=== PATIENT | female | born 1935 | race Caucasian/White ===

== ENCOUNTER 2020-07-28 09:12 | Inpatient (IN) | payer MEDICARE, OTHER ==
[~2020-07-28] VITALS: Ht 160 cm; Wt 74.2 kg
[2020-07-28] VITALS (18 sets, daily range): BP systolic 93–142; BP diastolic 56–94
[~2020-07-28 09:12] MED LIST: ATORVASTATIN CA40 MG PO; DIOVAN160 MG PO; IBUPROFEN200 MG PO; NEXIUM40 MG PO; PREMARIN0.625 MG PO; TYLENOL PM EX-1 EACH PO
[2020-07-28] MEDS ORDERED: NITROGLYCERIN 2% OINT 1 GM PKT TOP ONE (09:30)
[2020-07-28 09:56] LABS: ALANINE AMINOTRANSFERASE 14 IU/L (0-55); ALBUMIN 3.5 g/dL (3.5-5.0); ALKALINE PHOSPHATASE 66 IU/L (40-150); ANION GAP 15.1 mmol/L (8-16); BLOOD UREA NITROGEN 12 mg/dL (7-26); BUN/CREATININE RATIO 14 (6-25); CALCIUM 8.6 mg/dL (8.4-10.2); CARBON DIOXIDE 23 mmol/L (22-29); CHLORIDE 103 mmol/L (98-107); CREATINE KINASE 133 IU/L (29-168); CREATININE, SERUM 0.84 mg/dL (0.57-1.11); EST GLOMERULAR FILTRATION RATE > 60 ML/MIN (60-); GLUCOSE 97 mg/dL (74-118); MAGNESIUM 1.7 MG/DL (1.3-2.1); POTASSIUM 4.1 mmol/L (3.5-5.1); SODIUM 137 mmol/L (136-145)
[2020-07-28 09:58] LABS: BASOPHILS # (AUTO) 0.1 (0.0-0.1); EOSINOPHILS # (AUTO) 0.2 (0.0-0.4); EOSINOPHILS % 1.9 % (0.0-6.0); HEMATOCRIT 41.6 % (34.2-44.1); HEMOGLOBIN 13.5 g/dL (12.0-16.0); LYMPHOCYTES # (AUTO) 2.6 (1.0-3.2); MEAN CORPUSCULAR HEMOGLOBIN 30.8 pg (28-32); MEAN CORPUSCULAR HGB CONC 32.5 g/dL (31-35); MEAN CORPUSCULAR VOLUME 94.8 fL (81-99); MONOCYTES % 8.5 % (4.4-11.3); NEUTROPHILS # (AUTO) 7.4 (2.1-6.9); NEUTROPHILS % 65.2 % (38.7-80.0); PLATELET COUNT 276 x10e3/uL (140-360); RED BLOOD COUNT 4.39 x10e6/uL (3.6-5.1); RED CELL DISTRIBUTION WIDTH 12.9 % (11.7-14.4)
[2020-07-28] MEDS ORDERED: ASPIRIN 81 MG CHEW TAB PO ONE (10:00)
[2020-07-28] MEDS ORDERED: PANTOPRAZOLE 40 MG 10ML VIAL IV ONE (10:00)
[2020-07-28 10:26] LABS: INR 0.92; PARTIAL THROMBOPLASTIN TIME 27.5 seconds (23.8-35.5); PROTHROMBIN TIME 12.8 seconds (11.9-14.5)
[2020-07-28] MEDS ORDERED: ENOXAPARIN SODIUM INJ 100 MG/ML SYR SC NR (11:00)
[2020-07-28] MEDS ORDERED: MORPHINE SULFATE 2 MG/ML SYR 1ML IV PRN (11:15)
[2020-07-28] MEDS ORDERED: ONDANSETRON HCL INJ 2MG/ML 2ML 2 MG/ML VIAL IV PRN ×2 (11:15→14:15)
[2020-07-28] MEDS ORDERED: NITROGLYCERIN 2% OINT 1 GM PKT TOP SCH (12:00)
[2020-07-28] MEDS ORDERED: BIVALRIUDIN 250 MG/VIAL VIAL IV ONE (12:39)
[2020-07-28] MEDS ORDERED: SODIUM CHLORIDE 0.9% 50ML 50 ML ONE (12:39)
[2020-07-28] MEDS ORDERED: LIDOCAINE HCL 2% LOCAL 20 ML VIAL ONE (12:39)
[2020-07-28] MEDS ORDERED: FENTANYL CITRATE/PF 100MCG/2 ML INJ ONE (12:39)
[2020-07-28] MEDS ORDERED: MIDAZOLAM HCL 2 MG/2 ML VIAL ONE (12:39)
[2020-07-28] MEDS ORDERED: SODIUM CHLORIDE 0.9% 1000ML 1,000 ML ONE (12:40)
[2020-07-28] MEDS ORDERED: HEPARIN SOD/SOD CHLORIDE 2,000 ML ONE (12:40)
[2020-07-28] MEDS ORDERED: NITROGLYCERIN/D5W 200 MCG/ML 250 ML ONE (12:40)
[2020-07-28] MEDS ORDERED: IOPAMIDOL 370 MG/ML 200 ML INFUS..BTL INJ ONE (12:40)
[2020-07-28] MEDS ORDERED: ASPIRIN 325 MG TAB ONE (13:23)
[2020-07-28] MEDS ORDERED: CLOPIDOGREL BISULFATE 75 MG TAB ONE (13:23)
[2020-07-28] MEDS ORDERED: ADENOSINE 6MG/2ML 1 ML ONE (13:28)
[2020-07-28] MEDS ORDERED: SODIUM CHLORIDE 0.9% 250ML 250 ML ONE (13:28)
[2020-07-28] MEDS ORDERED: LOSARTAN POTASS25 MG (15:25)
[2020-07-28] MEDS ORDERED: METOPROLOL SUCC25 MG (15:26)
[2020-07-28] MEDS ORDERED: MONTELUKAST SOD10 MG PO (15:26)
[2020-07-28] MEDS ORDERED: ORPHENADRINE C100 MG PO (15:27)
[2020-07-28] MEDS: SODIUM CHLORIDE 0.9% 1000ML 1,000 ML IV SCH (16:13)
[2020-07-28] MEDS: METOPROLOL TARTRATE 25 MG TAB PO SCH (16:45)
[2020-07-28 17:12] LABS: CREATINE KINASE MB 18.9 ng/mL (0-5.0)
[2020-07-28] MEDS ORDERED: ATORVASTATIN 20 MG TAB PO SCH (21:00)
[2020-07-28] MEDS ORDERED: PRILOSEC OTC20 MG PO (21:10)
[2020-07-28] MEDS ORDERED: DIPHENHYDRAMINE HCL 25 MG CAP PO PRN (21:15)
[2020-07-29] VITALS (12 sets, daily range): BP systolic 94–142; BP diastolic 54–89
[2020-07-29] MEDS: SODIUM CHLORIDE 0.9% 1000ML 1,000 ML IV SCH (01:00)
[2020-07-29 01:20] LABS: CREATINE KINASE MB 18.8 ng/mL (0-5.0)
[2020-07-29 06:13] LABS: BASOPHILS % 0.5 % (0.0-1.0); EOSINOPHILS # (AUTO) 0.1 (0.0-0.4); EOSINOPHILS % 1.6 % (0.0-6.0); HEMATOCRIT 36.1 % (34.2-44.1); HEMOGLOBIN 11.8 g/dL (12.0-16.0); LYMPHOCYTES # (AUTO) 2.4 (1.0-3.2); LYMPHOCYTES % 28.8 % (18.0-39.1); MEAN CORPUSCULAR HEMOGLOBIN 30.9 pg (28-32); MEAN CORPUSCULAR HGB CONC 32.7 g/dL (31-35); MEAN CORPUSCULAR VOLUME 94.5 fL (81-99); MONOCYTES # (AUTO) 0.9 (0.2-0.8); NEUTROPHILS # (AUTO) 4.7 (2.1-6.9); NEUTROPHILS % 57.7 % (38.7-80.0); PLATELET COUNT 232 x10e3/uL (140-360); RED BLOOD COUNT 3.82 x10e6/uL (3.6-5.1); RED CELL DISTRIBUTION WIDTH 13.2 % (11.7-14.4)
[2020-07-29 06:41] LABS: ALANINE AMINOTRANSFERASE 13 IU/L (0-55); ALBUMIN 2.9 g/dL (3.5-5.0); ALBUMIN/GLOBULIN RATIO 0.9 (0.8-2.0); ALKALINE PHOSPHATASE 61 IU/L (40-150); ANION GAP 10.8 mmol/L (8-16); BLOOD UREA NITROGEN 9 mg/dL (7-26); BUN/CREATININE RATIO 12 (6-25); CARBON DIOXIDE 24 mmol/L (22-29); CHLORIDE 107 mmol/L (98-107); CHOL/HDL RATIO 2.8 (3.0-3.6); CHOLESTEROL 185 MD/DL (0-199); CREATININE, SERUM 0.76 mg/dL (0.57-1.11); EST GLOMERULAR FILTRATION RATE > 60 ML/MIN (60-); GLUCOSE 96 mg/dL (74-118); HDL CHOLESTEROL 65 MG/DL (40-60); LDL CHOLESTEROL 87 MG/DL (60-130); POTASSIUM 3.8 mmol/L (3.5-5.1); SODIUM 138 mmol/L (136-145); TRIGLYCERIDES 165 MG/DL (0-149)
[2020-07-29 07:26] LABS: CREATINE KINASE MB 17.5 ng/mL (0-5.0)
[2020-07-29] MEDS ORDERED: ESTROGENS CONJUGATED 0.625 MG TAB PO SCH (09:00)
[2020-07-29] MEDS ORDERED: ASPIRIN 81 MG ENTERIC COATED PO SCH (09:00)
[2020-07-29] MEDS ORDERED: CLOPIDOGREL BISULFATE 75 MG TAB PO SCH (09:00)
[2020-07-29] MEDS ORDERED: MONTELUKAST SODIUM 10 MG TAB PO SCH (09:00)
[2020-07-29] MEDS: METOPROLOL TARTRATE 25 MG TAB PO SCH (09:08)
[2020-07-29] MEDS ORDERED: PLAVIX75 MG PO (11:26)
[2020-07-29] MEDS ORDERED: ATORVASTATIN CA20 MG PO (11:36)
[2020-07-29] MEDS ORDERED: PANTOPRAZOLE SOD 40 MG TABEC PO SCH (21:00)
[2020-07-29] MEDS ORDERED: ATORVASTATIN 40 MG TAB PO SCH (21:00)
== END 2020-07-29 11:50 | disposition home or self-care (01) | DRG 247 ==
LOC: ER 09:22 → ERHOLD 11:08 → ICU 14:45
PROVIDERS: ADMIT Family Medicine; ATTEND Family Medicine
PROC: 027034Z Dilation of Coronary Artery, One Artery with Drug-eluting Intraluminal Device, Percutaneous Approach (ICD-10-PCS; principal; 2020-07-28)
PROC: 4A023N7 Measurement of Cardiac Sampling and Pressure, Left Heart, Percutaneous Approach (ICD-10-PCS; 2020-07-28)
PROC: B2111ZZ Fluoroscopy of Multiple Coronary Arteries using Low Osmolar Contrast (ICD-10-PCS; 2020-07-28)
PROC: B2151ZZ Fluoroscopy of Left Heart using Low Osmolar Contrast (ICD-10-PCS; 2020-07-28)
DX: I21.4 Non-ST elevation (NSTEMI) myocardial infarction (principal); I10 Essential (primary) hypertension; E78.5 Hyperlipidemia, unspecified; E78.00 Pure hypercholesterolemia, unspecified; E66.9 Obesity, unspecified; Z68.29 Body mass index [BMI] 29.0-29.9, adult; K21.9 Gastro-esophageal reflux disease without esophagitis; Z95.810 Presence of automatic (implantable) cardiac defibrillator; Z88.5 Allergy status to narcotic agent; Z82.49 Family history of ischemic heart disease and other diseases of the circulatory system; Z79.890 Hormone replacement therapy; Z20.828 Contact with and (suspected) exposure to other viral communicable diseases; G47.33 Obstructive sleep apnea (adult) (pediatric)
CPT/HCPCS: 36415; 71045; 76937; 80053; 80061; 82550; 82553; 83735; 83880; 84484; 85025; 85610; 85730; 92928; 93005; 93458; 99152; 99153; 99284; C1725; C1760; C1769; C1874; C1887; C9600; J0153; J0583; J2001; J2250; J3010; J7030; J7050; Q9967; U0002

== ENCOUNTER → 2021-02-04 | Outpatient (CLI) | payer MEDICARE, OTHER ==
[~2021-02-04] MED LIST changes: +ATORVASTATIN CA20 MG PO; +LOSARTAN POTASS25 MG; +METOPROLOL SUCC25 MG; +MONTELUKAST SOD10 MG PO; +ORPHENADRINE C100 MG PO; +PLAVIX75 MG PO; +PRILOSEC OTC20 MG PO
== END ==
LOC: CT 11:14
PROVIDERS: ATTEND Family Medicine
DX: R42 Dizziness and giddiness (principal)
CPT/HCPCS: 70450; 93880

== ENCOUNTER → 2021-04-28 | Outpatient (CLI) | payer MEDICARE, OTHER ==
[~2021-04-28] MED LIST changes: +IOPAMIDOL 300 MG/ML 15ML VIAL IT ONE
[2021-04-28 12:09] LABS: HEMOGLOBIN 13.2 g/dL (12.0-16.0)
[2021-04-28 12:35] LABS: INR 0.85; PARTIAL THROMBOPLASTIN TIME 39.5 seconds (23.8-35.5); PROTHROMBIN TIME 11.8 seconds (11.9-14.5)
== END ==
LOC: DX 11:32
PROVIDERS: ATTEND Family Medicine
DX: M54.16 Radiculopathy, lumbar region (principal); M54.14 Radiculopathy, thoracic region
CPT/HCPCS: 36415; 62303; 62304; 72129; 72132; 77002; 85014; 85049; 85610; 85730; Q9967

== ENCOUNTER 2021-05-05 08:29 | Emergency (ER) | payer MEDICARE, OTHER ==
[~2021-05-05] VITALS: Ht 160 cm; Wt 73.9 kg
[~2021-05-05 08:29] MED LIST changes: -IOPAMIDOL 300 MG/ML 15ML VIAL IT ONE
[2021-05-05] MEDS ORDERED: LIDOCAINE 4% PATCH TP ONE (09:30)
[2021-05-05] MEDS ORDERED: DEXAMETHASONE SOD PHOS 10 MG/1 ML VIAL IM ONE (09:30)
== END 2021-05-05 10:52 | disposition home or self-care (01) ==
LOC: ER 08:32
DX: M25.561 Pain in right knee (principal); M54.10 Radiculopathy, site unspecified; I10 Essential (primary) hypertension; E78.5 Hyperlipidemia, unspecified; K21.9 Gastro-esophageal reflux disease without esophagitis; I25.2 Old myocardial infarction; Z95.810 Presence of automatic (implantable) cardiac defibrillator; Z96.651 Presence of right artificial knee joint
CPT/HCPCS: 99283; J1100

== ENCOUNTER → 2021-06-20 | Outpatient (CLI) | payer MEDICARE, OTHER ==
[~2021-06-20] MED LIST changes: +IOPAMIDOL 370 MG/ML 200 ML INFUS..BTL INJ ONE; +SODIUM CHLORIDE 0.9% 50ML 50 ML ONE
[2021-06-20 15:48] LABS: CREATININE, SERUM 0.83 mg/dL (0.57-1.11)
== END ==
LOC: CT 15:02
PROVIDERS: ATTEND Family Medicine
DX: R91.8 Other nonspecific abnormal finding of lung field (principal)
CPT/HCPCS: 36415; 71260; 82565; 84520; Q9967

== ENCOUNTER 2021-07-07 06:07 | Observation (INO) | payer MEDICARE, OTHER ==
[~2021-07-07] VITALS: Ht 160 cm; Wt 77.1 kg
[~2021-07-07 06:07] MED LIST changes: +ACETAMINOPHEN325 M1 PO; -IOPAMIDOL 370 MG/ML 200 ML INFUS..BTL INJ ONE; +LOSARTAN POTASS25 MG PO; -METOPROLOL SUCC25 MG; +METOPROLOL SUCC25 MG PO; -SODIUM CHLORIDE 0.9% 50ML 50 ML ONE
[2021-07-07] MEDS ORDERED: CELECOXIB 200 MG CAP ONE (06:11)
[2021-07-07] MEDS ORDERED: DEXAMETHASONE SOD PHOS 10 MG/1 ML VIAL ONE (06:11)
[2021-07-07] MEDS ORDERED: SODIUM CHLORIDE 0.9% 50ML 100 ML ONE (06:12)
[2021-07-07] MEDS ORDERED: GABAPENTIN 300 MG CAP ONE (06:12)
[2021-07-07] MEDS ORDERED: ROPIVACAINE 246.25 MG, EPINEPHRINE HCL 1:1000 1ML 0.5 MG, CLONIDINE HCL 0.08 MG, KETORO... INJ ONE ×10 (06:30)
[2021-07-07] MEDS ORDERED: Vancomycin IV 1,000 MG ONE (06:45)
[2021-07-07] MEDS ORDERED: TRANEXAMIC ACID 1,000 MG/10 ML ML ONE (06:45)
[2021-07-07] MEDS ORDERED: SODIUM CHLORIDE 0.9% 500ML 500 ML ONE (06:45)
[2021-07-07] MEDS ORDERED: BUPIVACAINE 7.5MG/ML /DEXTROSE 82.5MG/ML 2 ML AMP INJ ONE (06:49)
[2021-07-07] MEDS ORDERED: KETOROLAC TROMETHAMINE 30 MG/ML VIAL IV PRN (08:30)
[2021-07-07] MEDS ORDERED: ACETAMINOPHEN 650 MG SUPP PR PRN (08:30)
[2021-07-07] MEDS ORDERED: HYDROCODONE/APAP 7.5MG-325MG 1 EA TAB PO PRN (08:30)
[2021-07-07] MEDS ORDERED: ZOLPIDEM TARTRATE 5 MG TAB PO PRN (08:30)
[2021-07-07] MEDS ORDERED: ONDANSETRON HCL INJ 2MG/ML 2ML 2 MG/ML VIAL IV PRN (08:30)
[2021-07-07] MEDS ORDERED: DOCUSATE SODIUM 100 MG CAP PO PRN (08:30)
[2021-07-07] MEDS ORDERED: DIPHENHYDRAMINE HCL INJ 50 MG/ML VIAL IV PRN (08:30)
[2021-07-07 09:04] VITALS: BP 121/56
[2021-07-07] MEDS ORDERED: SODIUM CHLORIDE 0.9% 1000ML 1,000 ML IV SCH (10:30)
[2021-07-07 11:42] VITALS: BP 117/62
[2021-07-07] MEDS ORDERED: LIDOCAINE HCL 2% LOCAL INJ 5 ML SDV VIAL INJ ONE (11:53)
[2021-07-07] MEDS ORDERED: PROPOFOL IV EMULSION 10 MG/ML 20 ML VIAL ONE (11:53)
[2021-07-07] MEDS ORDERED: POVIDONE IODINE 0.05% 0.05 % ML PO ONE (11:53)
[2021-07-07] MEDS ORDERED: EPHEDRINE SULFATE INJ 50 MG/ML VIAL ONE (11:53)
[2021-07-07] MEDS ORDERED: MIDAZOLAM HCL 2 MG/2 ML VIAL ONE (12:35)
[2021-07-07] MEDS: ASPIRIN 325 MG TAB PO SCH ×2 (13:02→16:46)
[2021-07-07] MEDS: Cefazolin 1 GM in SODIUM CHLORIDE 0.9% 50ML 50 ML IV SCH ×2 (15:01→22:15)
[2021-07-07 16:05] VITALS: BP 121/62
[2021-07-07] MEDS: CELECOXIB 200 MG CAP PO SCH (16:56)
[2021-07-07 20:00] VITALS: BP 114/60
[2021-07-07 20:15] VITALS: BP 114/60
[2021-07-07] MEDS: HYDROCODONE/APAP 5MG-325MG TAB PO PRN (20:26)
[2021-07-07] MEDS ORDERED: PANTOPRAZOLE SOD 40 MG TABEC PO SCH (21:00)
[2021-07-07] MEDS ORDERED: MONTELUKAST SODIUM 10 MG TAB PO SCH (21:00)
[2021-07-08] VITALS: BP 113/62
[2021-07-08] MEDS: HYDROCODONE/APAP 5MG-325MG TAB PO PRN (03:39)
[2021-07-08 04:00] VITALS: BP 119/58
[2021-07-08 05:03] LABS: HEMATOCRIT 30.6 % (34.2-44.1)
[2021-07-08] MEDS: Cefazolin 1 GM in SODIUM CHLORIDE 0.9% 50ML 50 ML IV SCH (06:44)
[2021-07-08] MEDS ORDERED: ONDANSETRON HCL 4 MG ORAL DISINTEGRATING TAB PO PRN (07:45)
[2021-07-08 08:00] VITALS: BP 104/61
[2021-07-08] MEDS ORDERED: ACETAMINOPHEN 1000 MG/100 ML IV PRN (08:30)
[2021-07-08] MEDS: CELECOXIB 200 MG CAP PO SCH (08:43)
[2021-07-08] MEDS: ASPIRIN 325 MG TAB PO SCH (08:43)
[2021-07-08] MEDS ORDERED: METOPROLOL SUCCINATE 50 MG TAB XL PO SCH (09:00)
== END 2021-07-08 11:56 | disposition home or self-care (01) ==
LOC: OR 06:07 → PACU V 08:18 → MED/SURG 09:04
PROVIDERS: ADMIT Specialist; ATTEND Specialist
DX: M16.11 Unilateral primary osteoarthritis, right hip (principal); M81.0 Age-related osteoporosis without current pathological fracture; I10 Essential (primary) hypertension; E78.5 Hyperlipidemia, unspecified; Z88.5 Allergy status to narcotic agent; Z88.8 Allergy status to other drugs, medicaments and biological substances; M17.12 Unilateral primary osteoarthritis, left knee; Z96.651 Presence of right artificial knee joint; Z01.812 Encounter for preprocedural laboratory examination; Z01.818 Encounter for other preprocedural examination; Z20.822 Contact with and (suspected) exposure to COVID-19; I25.10 Atherosclerotic heart disease of native coronary artery without angina pectoris; Z95.5 Presence of coronary angioplasty implant and graft; I25.2 Old myocardial infarction
CPT/HCPCS: 27130; 36415; 71046; 72170; 85014; 85018; 86850; 86900; 86920; 94799; 97116 ×2; 97162; 97530 ×2; C1713 ×2; C1776 ×3; G0378 ×2; J0171; J0690 ×2; J1100; J1885; J2001; J2250; J2704; J2795; J3370; J7040; S0164; U0002

== ENCOUNTER 2022-05-05 20:05 | Emergency (ER) | payer MEDICARE, OTHER ==
[~2022-05-05] VITALS: Ht 160 cm; Wt 77.1 kg
[2022-05-05] MEDS ORDERED: ONDANSETRON HCL INJ 2MG/ML 2ML 2 MG/ML VIAL IV STA (20:16)
[2022-05-05 20:48] LABS: BASOPHILS % 0.3 % (0.0-1.0); EOSINOPHILS # (AUTO) 0.1 (0.0-0.4); EOSINOPHILS % 0.9 % (0.0-6.0); HEMATOCRIT 38.3 % (34.2-44.1); HEMOGLOBIN 12.3 g/dL (12.0-16.0); MEAN CORPUSCULAR HGB CONC 32.1 g/dL (31-35); MEAN CORPUSCULAR VOLUME 93.4 fL (81-99); MONOCYTES # (AUTO) 1.3 (0.2-0.8); MONOCYTES % 10.8 % (4.4-11.3); NEUTROPHILS # (AUTO) 8.2 (2.1-6.9); NEUTROPHILS % 70.7 % (38.7-80.0); PLATELET COUNT 270 x10e3/uL (140-360); RED CELL DISTRIBUTION WIDTH 14.2 % (11.7-14.4)
[2022-05-05 21:02] LABS: ALBUMIN 3.3 g/dL (3.5-5.0); ALBUMIN/GLOBULIN RATIO 0.9 (0.8-2.0); CALCIUM 8.6 mg/dL (8.4-10.2); CREATININE, SERUM 0.86 mg/dL (0.57-1.11)
[2022-05-05 21:13] LABS: CLARITY,URINE CLEAR (CLEAR); COLOR,URINE YELLOW (YELLOW); KETONES,URINE NEGATIVE (NEGATIVE); LEUKOCYTE ESTERASE ,URINE TRACE (NEGATIVE); NITRITE,URINE NEGATIVE (NEGATIVE); PROTEIN,URINE DIPSTICK NEGATIVE (NEGATIVE); URINE UROBILINOGEN 0.2 mg/dL (0.2 - 1)
[2022-05-05 21:24] LABS: BACTERIA,URINE MODERATE /HPF; EPITHELIAL CELLS,URINE MODERATE /LPF; WBC,URINE (MAN) 0-5 /HPF (0-5)
[2022-05-05] MEDS ORDERED: IOPAMIDOL 370 MG/ML 100 ML INFUS..BTL INJ ONE (21:52)
[2022-05-05] MEDS ORDERED: ONDANSETRON ODT4 MG PO (22:47)
[2022-05-05] MEDS ORDERED: METRONIDAZOLE500 MG PO (22:47)
[2022-05-05] MEDS ORDERED: CIPRO500 MG PO (22:47)
[2022-05-05 23:22] VITALS: BP 132/58
== END 2022-05-05 23:14 | disposition home or self-care (01) ==
LOC: ER 20:48
DX: R10.30 Lower abdominal pain, unspecified (principal); K57.32 Diverticulitis of large intestine without perforation or abscess without bleeding; R11.2 Nausea with vomiting, unspecified; I10 Essential (primary) hypertension; I25.2 Old myocardial infarction; Z95.810 Presence of automatic (implantable) cardiac defibrillator; Z96.651 Presence of right artificial knee joint
CPT/HCPCS: 36415; 74177; 80053; 81001; 83690; 85025; 99283; J2405; Q9967

== ENCOUNTER → 2023-12-31 | Outpatient (REF) | payer MEDICARE, OTHER ==
[~2023-12-31] MED LIST changes: +CIPRO500 MG PO; +METRONIDAZOLE500 MG PO; +ONDANSETRON ODT4 MG PO; +PANTOPRAZOLE SO40 MG PO; +TYLENOL PM EXS1 EACH PO
== END ==
LOC: DX 11:44
PROVIDERS: ATTEND Internal Medicine Nephrology
DX: N18.4 Chronic kidney disease, stage 4 (severe) (principal)
CPT/HCPCS: 36589